=== PATIENT | female | born 1940 | race Hispanic/Latino ===

== ENCOUNTER → 2018-08-23 | Outpatient (CLI) | payer OTHER, MEDICARE ==
[~2018-08-23] MED LIST: HAWT500C PO
[2018-08-23 13:30] LABS: BASOPHILS % (AUTO) 0.8 % (0.0-5.0); EOSINOPHILS % (AUTO) 0.6 % (0.0-8.0); LYMPHOCYTES % (AUTO) 25.7 % (21.0-51.0); MEAN CORPUSCULAR HEMOGLOBIN 30.2 pg (27.0-33.0); MEAN CORPUSCULAR HGB CONC 33.2 g/dL (32.0-36.0); MEAN CORPUSCULAR VOLUME 91.1 fL (79-99); MONOCYTES % (AUTO) 8.8 % (3.0-13.0); NEUTROPHILS % (AUTO) 64.1 % (40.0-77.0); PLATELET COUNT (AUTO) 230 K/uL (130-400); RED BLOOD CELL COUNT(AUTO) 4.61 MIL/uL (4.00-5.50); RED CELL DISTRIBUTION WIDTH 13.4 % (11.0-15.5); WHITE BLOOD COUNT (AUTO) 5.5 K/uL (4.8-10.8)
[2018-08-23 13:40] LABS: INR 0.93 (0.85-1.15); PROTHROMBIN TIME 9.8 SEC (9.6-11.6)
== END | disposition home or self-care (01) ==
LOC: LAB 12:48
PROVIDERS: ATTEND Internal Medicine
DX: Z01.818 Encounter for other preprocedural examination (principal); R00.2 Palpitations; E78.5 Hyperlipidemia, unspecified; E78.00 Pure hypercholesterolemia, unspecified
CPT/HCPCS: 36415; 85025; 85610; 85730

== ENCOUNTER → 2023-06-02 | Outpatient (CLI) | payer OTHER | END | disposition home or self-care (01) | LOC: SHCH 10:49 | PROVIDERS: ATTEND Internal Medicine Cardiovascular Disease | DX: I08.3 Combined rheumatic disorders of mitral, aortic and tricuspid valves (principal); I42.9 Cardiomyopathy, unspecified; I10 Essential (primary) hypertension; E78.5 Hyperlipidemia, unspecified | CPT/HCPCS: 93306 ==

== ENCOUNTER 2024-04-25 21:05 | Observation (INO) | payer OTHER, MEDICAID ==
[~2024-04-25] VITALS: Ht 167.6 cm; Wt 59.4 kg
--- NOTE | 2024-04-25 21:17 | NUR ---
PATIENT TAKEN TO CT AT THIS TIME
--- NOTE | 2024-04-25 21:24 | ERN ---
ED Note History of Present Illness Stated Complaint: HEAD INJURY Chief Complaint: Head, Face, Neck Trauma Time Seen by MD: 21:12 Dictation: This is an 83-year-old female brought by EMS for evaluation of a fall and injury to the head. This happened prior to ER presentation. Apparently she was heading to the bathroom and tripped and fell hit the left side of the head and sustained a an abrasion and a bump Patient denied any loss of consciousness. He is on apixaban. She denied any headache, diplopia or blurred vision, facial droop, weakness of 1 side of the body or seizure activity. Also denied any chest pain palpitations or syncopal episode. Temperature 102.6 pulse 86 respirations 16 blood pressure 126/56 with a pulse oximetry of 95% on room air Trauma alert called- Time of patient arrival-915 ED physician involved and time of arrival and evaluation-916 Tier level- 2 [id number] interventions done. Patient just transported by EMS Primary survey- Airway intact patient on room air with pulse oximetry of 98% Breathing-normal breath sounds coarse rhonchi bilaterally Circulation-skin warm, distal pulses 2+, capillary refill less than 2 seconds globally Disability-only face with lacerations Pupils equal round reacting to light GCS- E-5 V-4 M-6-15 Motor function-moves all extremities Sensory-no deficits Exposure Allergies: Coded Allergies: No Known Allergies (Unverified Allergy, Unknown, 10/19/14) Home Meds Reported Medications [Simethicone Os] No Conflict Check, 40 MG PO Q6HPRN 04/25/24 Pantoprazole Sodium (Protonix) 40 Mg Ectab, 40 MG PO BID, TAB.EC 04/25/24 Ondansetron HCl (Ondansetron HCl) 4 Mg Tablet, 1 TAB PO Q6HPRN PRN for nausea/vomiting, #10 TAB 0 Refills 04/25/24 Nitroglycerin (Nitroglycerin) 0.4 Mg Tab.subl, 1 TAB SL AD for chest pain, #25 TAB 0 Refills 1st sign of attack; may repeat every 5 mins; if pain persists after 3 in 15 min, medical attention is recommended 04/25/24 Metoprolol Tartrate (Metoprolol Tartrate) 50 Mg Tablet, 1 TAB PO BID for 30 Days, #60 TAB 0 Refills 04/25/24 Mag Hydrox/Al Hydrox/Simeth (Maalox/Mylanta Susp) 200 Mg-200 Mg-20 Mg/5 Ml Susp, 30 ML PO Q6HPRN, ML 04/25/24 Hydralazine Hcl (APRESOLINE) 10 Mg Tablet, 10 MG PO Q8H PRN for IF SBP GREATER THAN 140, TAB 04/25/24 Guaifenesin (Guaifenesin) 100 Mg/5 Ml Liq, 10 ML PO Q4HRS PRN for PRN COUGH for 3 Days, #120 ML 0 Refills 04/25/24 Glucagon HCl (Glucagon Emergency Kit) 1 Mg Vial, 1 MG IJ BID PRN for PRN HYPOGLYCEMIA, VIAL 04/25/24 Lactulose (Enulose) 10 Gram/15 Ml Solution, 10 GM PO DAILY for CONSTIPATION, ML 04/25/24 Donepezil HCl (Aricept) 10 Mg Tablet, 1 TAB PO HS for 30 Days, #30 TAB 0 Refills 04/25/24 Amiodarone HCl (Amiodarone HCl) 100 Mg Tablet, 1 TAB PO DAILY for 30 Days, #30 TAB 0 Refills 04/25/24 Alendronate Sodium (Alendronate Sodium) 70 Mg Tablet, 70 MG PO DAILY, TAB 04/25/24 Apixaban (Eliquis) 2.5 Mg Tablet, 2.5 MG PO BID, TAB 04/25/24 Ang[place] (Angola Pierce) 500 Mg Capsule, 500 MG PO BID, CAP 10/19/14 Past Medical History Family History: Negative Social History: Negative History: Not Applicable RN Note Reviewed/Agreed w/PFSH: Yes Review of System Dictation Constitutional: Negative for fever,chills, and weight loss Eyes: Negative for injury, pain,redness, and discharge ENT: Negative for injury,pain or swelling Cardiovascular: Negative for chest pain, palpitations, and edema Respiratory: Negative for shortness of breath, cough, and wheezing, Abdomen/GI: Negative for abdominal pain, nausea, vomiting, diarrhea, and constipation Back: Negative for injury and pain : Negative for injury, bleeding and discharge MS/Extremity: Negative for injury and deformity Skin: Negative for rash, and discoloration Neuro: Negative for headache, weakness, numbness, tingling, and seizure Psych: Negative for suicide ideation, homicidal ideation, and hallucinations Initial Vital Sign VS Vital Signs Date Time Temp Pulse Resp B/P (MAP) Pulse Ox O2 Delivery O2 Flow Rate FiO2 04/25/24 21:10 102.6 86 16 126/56 95 Room Air* 0 21 Physical Exam Dictation Secondary survey Vital signs General well-developed well-nourished Head-normocephalic left facial injuries and lip injuries cleaned with saline Eyes pupils were equal round reactive to light conjunctiva clear extraocular movements intact no raccoon eyes ENT no chandra sign nares patent, oropharynx clear no fluid in the ear canals. Neck no JVD, midline trachea, no cervical spine tenderness, Heart S1-S2 regular no murmurs rubs or gallops Lungs-clear to auscultation bilaterally Chest chest wall nontender no bruising or deformity noted no flail chest Abdomen-no Vanessa Strauss's or Joshua's sign, soft nontender no rebound or guarding--E fast scan negative Pelvis stable to rock Back-no step-offs or deformities T2 L-spine nontender no perineal hematoma no blood at the meatus Extremities 2+ global pulses, moving all extremities well +5 x 5 muscle strength globally Neurological-cranial nerves 2-12 grossly intact no sensory deficits Rectal-good tone no gross blood no high-riding prostate Results (Laboratory/Radiology) Laboratory/Radiology Laboratory Tests Test 04/25/24 21:32 04/25/24 21:33 Influenza Type A Antigen Positive For Type A Influenza Type B Antigen Negative For Type B SARS-CoV-2 Antigen (Rapid) PRESUMPTIVE NEGATIVE White Blood Count 7.7 K/uL (4.8-10.8) Red Blood Count 3.92 MIL/uL (4.00-5.50) L Hemoglobin 11.1 g/dL (12.0-16.0) L Hematocrit 35.2 % (36-48) L Mean Corpuscular Volume 89.8 fL (79-99) Mean Corpuscular Hemoglobin 28.3 pg (27.0-33.0) Mean Corpuscular Hemoglobin Concent 31.5 g/dL (32.0-36.0) L Red Cell Distribution Width 13.5 % (11.0-15.5) Platelet Count 202 K/uL (130-400) Mean Platelet Volume 10.3 fL (7.5-10.5) Immature Granulocyte % (Auto) 0.7 % (0-1) Neutrophils (%) (Auto) 75.9 % (40.0-77.0) Lymphocytes (%) (Auto) 7.8 % (21.0-51.0) L Monocytes (%) (Auto) 15.5 % (3.0-13.0) H Eosinophils (%) (Auto) 0.0 % (0.0-8.0) Basophils (%) (Auto) 0.1 % (0.0-5.0) Neutrophils # (Auto) 5.8 K/uL (1.8-7.7) Lymphocytes # (Auto) 0.6 K/uL (1.0-4.8) L Monocytes # (Auto) 1.2 K/uL (0.1-1.0) H Eosinophils # (Auto) 0.00 K/uL (0.00-0.70) Basophils # (Auto) 0.01 K/uL (0.00-0.20) Absolute Immature Granulocyte (auto 0.05 K/uL (0-1) Nucleated Red Blood Cells 0.0 % (0.0-0.19) White Cell Morphology Comment See comments Sodium Level 132 mmol/L (136-145) L Potassium Level 3.8 mmol/L (3.5-5.1) Chloride Level 96 mmol/L (101-111) L Carbon Dioxide Level 31 mmol/L (21-32) Blood Urea Nitrogen 20 mg/dL (7-18) H Creatinine 0.9 mg/dL (0.5-1.0) Glomerular Filtration Rate Calc 63 mL/min (>90) Random Glucose 98 mg/dL (70-105) Lactic Acid Level 1.3 mmol/L (0.8-2.5) Total Calcium 8.6 mg/dL (8.5-10.1) Total Creatine Kinase 567 U/L (21-232) *H Troponin I High Sensitivity 40.4 ng/L (4-50) B-Type Natriuretic Peptide 277 pg/mL (0-100) H Serum Alcohol < 3 mg/dL (0-10) Labs Reviewed?: Yes EKG Comment: 12 lead EKG done on 04/25/2024 at 9:35 p.m. showed a heart rate of 88, [place] interval 154, QRS 88, QT/QTC 377/441 Impression normal sinus rhythm with PACs left atrial enlargement nonspecific ST- T changes in the septal leads. Interpreted by ER MD Dr. Ying CT Scan Comment: REASON: trauma fall head injury ORDERING PHYSICIAN: FRANTZ YING MD PROCEDURE: C SPIN WO - CT CERVICAL SPINE W/O CONTRAST Exam Type: CT cervical spine without contrast Clinical Information: trauma fall head injury Comparison: None Technique: Spiral axial images were performed from the base of the skull down to the thoracic vertebral bodies. Both sagittal and coronal reconstructions were performed. CT Dose Index (CTDI): 12.85 mGy Dose Length Product (DLP): 282.6 total Findings: There are degenerative changes. Degenerative disc disease is noted at multiple levels. There is reversal of normal cervical lordosis consistent with degeneration and spasm. There are no fractures. There is facet hypertrophy at multiple levels. IMPRESSION: Degenerative changes as noted. No acute pathology. No fractures seen. This study was performed using dose reduction techniques to include automated exposure control and/or adjustment of the mA and/or kV according to patient size. DICTATED BY: KETAN HARRISON MD DATE: 04/25/242133 ELECTRONICALLY SIGNED BY: KETAN HARRISON MD DATE: 04/25/242139 REASON: trauma fall head injury ORDERING PHYSICIAN: FRANTZ YING MD PROCEDURE: HEAD WO - CT HEAD/BRAIN W/O CONTRAST Exam Type: CT HEAD/BRAIN W/O CONTRAST Clinical Information: trauma fall head injury Comparison: None CT Dose Index (CTDI): 57.33 mGy Dose Length Product (DLP): 956.79 total mGy-cm Findings: The examination shows atrophy. There is low attenuation throughout the periventricular white matter locations, consistent with chronic small vessel ischemic changes. No acute intra- or extra-axial fluid collections are seen. There is no evidence of acute or chronic hemorrhage. There is no mass effect or shift of midline structures. There are no areas to suggest acute infarct. The skull windows show no significant abnormalities. IMPRESSION: 1. ATROPHY AND CHRONIC SMALL VESSEL ISCHEMIC CHANGES. This study was performed using dose reduction techniques to include automated exposure control and/or adjustment of the mA and/or kV according to patient size. DICTATED BY: KETAN HARRISON MD DATE: 04/25/242127 ELECTRONICALLY SIGNED BY: KETAN HARRISON MD DATE: 04/25/242139 ED Course ED Course Orders Procedure Category Date Status Time Alcohol, Blood LAB 04/25/24 Complete 21:14 Cardiac Panel LAB 04/25/24 Complete 21:14 Cbc With Differential LAB 04/25/24 Complete 21:14 Basic Metabolic Panel LAB 04/25/24 Complete 21:14 B-Type Natriuretic LAB 04/25/24 Complete Peptide 21:14 Urinalysis Profile LAB 04/25/24 Logged 21:14 Ct Head/Brain W/O CT 04/25/24 Resulted Contrast 21:14 Ct Cervical Spine W/O CT 04/25/24 Resulted Contrast 21:14 12 Lead Ekg Tracing- EKG 04/25/24 Complete Technical 21:14 Chest 1vw RAD 04/25/24 Resulted 21:14 Blood Cult AZAEL 04/25/24 In Process 21:17 Lactic Acid LAB 04/25/24 Complete 21:17 Influenza Type A & B, LAB 04/25/24 Complete Rapid 21:17 Covid19 (Sars Antigen LAB 04/25/24 Complete Rapid) 21:17 0.9%Nacl 1000ml (Ns PHA 04/25/24 Complete 1000ml) 21:30 Acetaminophen 325 Tab PHA 04/25/24 Complete (Tylenol 325mg Tab 22:00 Oseltamivir Phosphate PHA 04/26/24 Complete (Tamiflu) 01:00 Ceftriaxone 1g Vial PHA 04/26/24 Complete (Rocephine 1g Inj) 01:00 Current Medications Medications (Trade) Dose Ordered Sig/Jennie Route PRN Reason Start Time Stop Time Status Last Admin Dose Admin Acetaminophen (TYLenol 325MG TAB) 650 mg ONCE ONCE PO 04/25/24 22:00 04/25/24 22:01 DC 04/25/24 21:44 Ceftriaxone Sodium (ROCEphine 1G INJ) 1 gm ONCE ONCE IVPB 04/26/24 01:00 04/26/24 01:01 DC Oseltamivir Phosphate (Tamiflu) 75 mg ONCE ONCE PO 04/26/24 01:00 04/26/24 01:01 DC Sodium Chloride 1,000 ml @ 0 mls/hr ONCE ONCE IV 04/25/24 21:30 04/25/24 21:31 DC 04/25/24 21:44 Vital Signs Date Time Temp Pulse Resp B/P (MAP) Pulse Ox O2 Delivery O2 Flow Rate FiO2 04/25/24 21:21 102.6 86 16 126/56 95 Room Air 0 04/25/24 21:10 102.6 86 16 126/56 95 Room Air* 0 21 We will perform diagnostic labs, advanced imaging and administer medications according to the patient's complaint. Once the results are available, will review and personally interpreted the labs to rule out any acute life-threatening emergency the trach require immediate intervention and treatment. I will then re-evaluate the patient after treatment and diagnostic exams have return to determine whether the patient requires any further testing, can safely be discharged home or need further admission to hospital for additional treatment and evaluation. 9:45 p.m. Labs reviewed CBC shows a hemoglobin of 11.1 10:09 p.m. lactic acid is 1.3 BNP 7 shows a BUN and creatinine of 20 and 0.9 with a sodium of 132 chloride 96. 10:[address] scan of head negative for any acute intracranial abnormality or hemorrhage no depressed skull fracture. CT cervical spine only showed degenerative disc disease but no evidence of any fractures or dislocations 11:00 p.m. still awaiting urinalysis and viral serology 12:38 a.m. delay in admitting the patient as I was involved in an emergency in the ICU. Influenza a was positive We will admit the patient for sepsis dehydration influenza a likely a UTI it is still penng at this time. 1:07 a.m. patient accepted by , for admission and further management Medical Decision Making MDM MDM: Differential diagnosis: Fall probably from advanced age, dehydration, sepsis, electrolyte abnormalities, intracranial event Rationale: Tests considered and ordered secondary to shared decision making include: labs, ECG and radiology Previous outside records reviewed: Old ER visits. Risk of complication and/or morbidity or mortality of patient management: None Medications-Per medication reconciliation Need for hospitalization: Patient does meet criteria for hospitalization. Need for emergency major/minor surgery: No There are no social concerns with this patient. Prescription drug management Prescriptions will include symptomatic care Patient's prior external medical records from other ER visits were reviewed by me as indicated. Prior testing and results from previous visits were reviewed. Prior tests were taken into account with medical decision making and resource utilization, independent historian/historians were used to obtain complete medical history. I independently interpreted the test that were performed, results were reviewed by me and considered findings on radiology if ordered. Medical management and examination interpretation discussions were had by me with other qualified healthcare professionals as indicated for the patient's care. Problem List Problem List: (1) Fall from standing (2) Closed head injury (3) Left parietal scalp hematoma (4) Sepsis (5) Influenza A DX & DISP Disposition: Inpatient Decision to Admit Time: 21:48 Departure Impression: Primary Impression: Fall from standing Additional Impressions: Closed head injury, Left parietal scalp hematoma, Sepsis, Influenza A Condition: Stable Additional Instructions: Patient was informed of all the diagnostic labs and procedures conducted in the emergency room today and demonstrated understanding of the results. I personally reviewed and interpreted all the diagnostic exams performed in the ER today. The patient will be admitted to the hospital for further treatment and evaluation. Disposition-admit to facility Condition-stable/guarded Course-uncertain at this time Pain status-decreased Assessment-exam unchanged Admission Certification- I certify that the patients status is appropriate and is based on my best clinical judgment and the patient's condition as documented in the medical records Referrals: OLEGARIO RODRIGUEZ MD (PCP) FRANTZ YING MD Apr 25, 2024 21:24
--- NOTE | 2024-04-25 21:32 | NUR ---
PATIENT BACK FROM CT SCAN
--- NOTE | 2024-04-25 21:37 | EKG ---
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
[2024-04-25] MEDS ORDERED: APIX2.5T PO (21:40)
--- NOTE | 2024-04-25 21:40 | HMCIMG ---
Exam Type: CT HEAD/BRAIN W/O CONTRAST Clinical Information: trauma fall head injury Comparison: None CT Dose Index (CTDI): 57.33 mGy Dose Length Product (DLP): 956.79 total mGy-cm Findings: The examination shows atrophy. There is low attenuation throughout the periventricular white matter locations, consistent with chronic small vessel ischemic changes. No acute intra- or extra-axial fluid collections are seen. There is no evidence of acute or chronic hemorrhage. There is no mass effect or shift of midline structures. There are no areas to suggest acute infarct. The skull windows show no significant abnormalities. IMPRESSION: 1. ATROPHY AND CHRONIC SMALL VESSEL ISCHEMIC CHANGES. This study was performed using dose reduction techniques to include automated exposure control and/or adjustment of the mA and/or kV according to patient size.
--- NOTE | 2024-04-25 21:40 | HMCIMG ---
Exam Type: CT cervical spine without contrast Clinical Information: trauma fall head injury Comparison: None Technique: Spiral axial images were performed from the base of the skull down to the thoracic vertebral bodies. Both sagittal and coronal reconstructions were performed. CT Dose Index (CTDI): 12.85 mGy Dose Length Product (DLP): 282.6 total Findings: There are degenerative changes. Degenerative disc disease is noted at multiple levels. There is reversal of normal cervical lordosis consistent with degeneration and spasm. There are no fractures. There is facet hypertrophy at multiple levels. IMPRESSION: Degenerative changes as noted. No acute pathology. No fractures seen. This study was performed using dose reduction techniques to include automated exposure control and/or adjustment of the mA and/or kV according to patient size.
[2024-04-25] MEDS ORDERED: AMIO100T4 PO (21:41)
[2024-04-25] MEDS ORDERED: ALEN70TA80 PO (21:41)
[2024-04-25] MEDS ORDERED: DONE10TA8 PO (21:42)
[2024-04-25 21:43] LABS: BASOPHILS # (AUTO) 0.01 K/uL (0.00-0.20); BASOPHILS % (AUTO) 0.1 % (0.0-5.0); HEMATOCRIT 35.2 % (36-48); IMMATURE GRANULOCYTE ABSOLUTE 0.05 K/uL (0-1); LYMPHOCYTES # (AUTO) 0.6 K/uL (1.0-4.8); LYMPHOCYTES % (AUTO) 7.8 % (21.0-51.0); MEAN CORPUSCULAR HEMOGLOBIN 28.3 pg (27.0-33.0); MEAN CORPUSCULAR HGB CONC 31.5 g/dL (32.0-36.0); MEAN CORPUSCULAR VOLUME 89.8 fL (79-99); MONOCYTES # (AUTO) 1.2 K/uL (0.1-1.0); MONOCYTES % (AUTO) 15.5 % (3.0-13.0); NEUTROPHILS # (AUTO) 5.8 K/uL (1.8-7.7); NEUTROPHILS % (AUTO) 75.9 % (40.0-77.0); PLATELET COUNT (AUTO) 202 K/uL (130-400); RED BLOOD CELL COUNT(AUTO) 3.92 MIL/uL (4.00-5.50); RED CELL DISTRIBUTION WIDTH 13.5 % (11.0-15.5); WHITE BLOOD COUNT (AUTO) 7.7 K/uL (4.8-10.8)
[2024-04-25] MEDS ORDERED: LACT10SO75 PO (21:43)
[2024-04-25] MEDS: acetaMINOPHEN 325 MG TAB PO ONE (21:44)
[2024-04-25] MEDS ORDERED: GLUC1VIA14 IJ (21:44)
[2024-04-25] MEDS: 0.9%NACL 1000ML 1,000 ML IV ONE (21:44)
[2024-04-25] MEDS ORDERED: GUAI100S13 PO (21:46)
[2024-04-25] MEDS ORDERED: HYDR-3420 PO (21:47)
[2024-04-25] MEDS ORDERED: MAAL30 PO (21:48)
[2024-04-25] MEDS ORDERED: METO50TA18 PO (21:48)
[2024-04-25] MEDS ORDERED: NITR0.4T50 SL (21:49)
[2024-04-25] MEDS ORDERED: PANT40TA55 PO (21:50)
[2024-04-25] MEDS ORDERED: ONDA-104 PO (21:50)
[2024-04-25 21:54] LABS: CARBON DIOXIDE 31 mmol/L (21-32); CHLORIDE 96 mmol/L (101-111); CREATININE 0.9 mg/dL (0.5-1.0); GLOMERULAR FILTR. RATE CALC 63 mL/min (>90); GLUCOSE,RANDOM 98 mg/dL (70-105); POTASSIUM 3.8 mmol/L (3.5-5.1); SODIUM SERUM 132 mmol/L (136-145); UREA NITROGEN, BLOOD 20 mg/dL (7-18)
[2024-04-25] MEDS ORDERED: [UNRECOGNIZED DRUG - OTHER] PO (21:55)
--- NOTE | 2024-04-25 22:00 | HMCIMG ---
Exam Type: CHEST 1VW Clinical Information: fall Comparison: None Findings: The lungs are clear of infiltrates. The heart is enlarged. Bony and soft tissue structures of the chest wall are unremarkable. IMPRESSION: Cardiomegaly. Clear lungs.
[2024-04-25 22:05] LABS: B-TYPE NATRIURETIC PEPTIDE 277 pg/mL (0-100)
[2024-04-25 22:08] LABS: ALCOHOL, BLOOD < 3 mg/dL (0-10)
[2024-04-25 22:12] LABS: CREATINE KINASE, TOTAL 567 U/L (21-232)
[2024-04-25 22:30] LABS: COVID19 (SARS ANTIGEN RAPID) PRESUMPTIVE NEGATIVE (NEGATIVE)
[2024-04-25 22:32] LABS: INFLUENZA TYPE B Negative For Type B (NEGATIVE)
[2024-04-25 22:43] LABS: INFLUENZA TYPE A Positive For Type A (NEGATIVE)
[2024-04-25 22:55] VITALS: TEMP 101
[2024-04-26] MEDS: OSELTAMIVIR PHOSPHATE 75 MG CAP PO ONE (01:06)
[2024-04-26] MEDS: cefTRIAXone 1G VIAL IVPB ONE (01:06)
[2024-04-26] MEDS ORDERED: acetaMINOPHEN 325 MG TAB PO PRN (01:30)
[2024-04-26] MEDS: 1/2 NS 1000ML 1,000 ML IV SCH (01:38)
[2024-04-26 02:25] VITALS: BP 109/59; PULSE 77; RESP 18; TEMP 97.8
[2024-04-26 04:49] VITALS: BP 131/76; PULSE 79; RESP 18; TEMP 98.1
[2024-04-26 05:07] LABS: BASOPHILS # (AUTO) 0.03 K/uL (0.00-0.20); BASOPHILS % (AUTO) 0.5 % (0.0-5.0); HEMATOCRIT 39.1 % (36-48); IMMATURE GRANULOCYTE ABSOLUTE 0.03 K/uL (0-1); LYMPHOCYTES # (AUTO) 1.7 K/uL (1.0-4.8); LYMPHOCYTES % (AUTO) 25.1 % (21.0-51.0); MEAN CORPUSCULAR HEMOGLOBIN 28.7 pg (27.0-33.0); MEAN CORPUSCULAR HGB CONC 30.9 g/dL (32.0-36.0); MEAN CORPUSCULAR VOLUME 92.9 fL (79-99); MONOCYTES # (AUTO) 0.7 K/uL (0.1-1.0); MONOCYTES % (AUTO) 10.3 % (3.0-13.0); NEUTROPHILS # (AUTO) 4.2 K/uL (1.8-7.7); NEUTROPHILS % (AUTO) 63.6 % (40.0-77.0); PLATELET COUNT (AUTO) 195 K/uL (130-400); RED BLOOD CELL COUNT(AUTO) 4.21 MIL/uL (4.00-5.50); RED CELL DISTRIBUTION WIDTH 13.5 % (11.0-15.5); WHITE BLOOD COUNT (AUTO) 6.6 K/uL (4.8-10.8)
[2024-04-26 05:19] LABS: ALBUMIN 3.4 g/dL (3.5-5.0); BILIRUBIN,TOTAL 0.3 mg/dL (0.2-1.0); POTASSIUM 3.5 mmol/L (3.5-5.1); TOTAL PROTEIN, SERUM 7.6 g/dL (6.0-8.3)
[2024-04-26 08:00] VITALS: BP 107/59; PULSE 102; RESP 18; TEMP 98.3; O2SAT 99
--- NOTE | 2024-04-26 13:17 | NUR ---
DCP -- [facility] Droplet Precautions Via telephone interview, Sergio Solis [phone] states patient has Alzheimer's and has been living at [facility] since end February 2023. [facility] patient is full assist ADL's. [facility] patient has a wheelchair and [facility] provides medical devices for use. PCP - Berto Kwan MD Pharmacy - [facility]. Transportation will be [facility]. Elsi BrandonSergio salmon [phone]/Sergio Egan [phone] are the emergency contacts. Addendum: 04/26/24 at 1322 by SANDRA PEPPER RN CM Amended: Links added.
--- NOTE | 2024-04-26 22:23 | HP ---
HISTORY AND PHYSICAL NOTE DATE OF CONSULTATION: 04/26/24 REASON FOR CONSULTATION: Fall HISTORY OF PRESENT ILLNESS: This is an 83-year-old female brought by EMS for evaluation of a fall and injury to the head. This happened prior to ER presentation. Apparently she was heading to the bathroom and tripped and fell hit the left side of the head and sustained a an abrasion and a bump Patient denied any loss of consciousness. He is on apixaban. She denied any headache, diplopia or blurred vision, facial droop, weakness of 1 side of the body or seizure activity. Also denied any chest pain palpitations or syncopal episode. Temperature 102.6 pulse 86 respirations 16 blood pressure 126/56 with a pulse oximetry of 95% on room air Trauma alert called- Time of patient arrival-[id number] ED physician involved and time of arrival and evaluation-[id number] Tier level- 2 [id number] interventions done. Patient just transported by EMS Primary survey- Airway intact patient on room air with pulse oximetry of 98% Breathing-normal breath sounds coarse rhonchi bilaterally Circulation-skin warm, distal pulses 2+, capillary refill less than 2 seconds globally Disability-only face with lacerations Pupils equal round reacting to light GCS- E-5 V-4 M-6-15 Motor function-moves all extremities Sensory-no deficits Exposure Allergies: Coded Allergies: No Known Allergies (Unverified Allergy, Unknown, 10/19/14) Home Meds Reported Medications [Simethicone Os] No Conflict Check, 40 MG PO Q6HPRN 04/25/24 Pantoprazole Sodium (Protonix) 40 Mg Ectab, 40 MG PO BID, TAB.EC 04/25/24 Ondansetron HCl (Ondansetron HCl) 4 Mg Tablet, 1 TAB PO Q6HPRN PRN for nausea/vomiting, #10 TAB 0 Refills 04/25/24 Nitroglycerin (Nitroglycerin) 0.4 Mg Tab.subl, 1 TAB SL AD for chest pain, #25 TAB 0 Refills 1st sign of attack; may repeat every 5 mins; if pain persists after 3 in 15 min, medical attention is recommended 04/25/24 Metoprolol Tartrate (Metoprolol Tartrate) 50 Mg Tablet, 1 TAB PO BID for 30 Days, #60 TAB 0 Refills 04/25/24 Mag Hydrox/Al Hydrox/Simeth (Maalox/Mylanta Susp) 200 Mg-200 Mg-20 Mg/5 Ml Susp, 30 ML PO Q6HPRN, ML 04/25/24 Hydralazine Hcl (APRESOLINE) 10 Mg Tablet, 10 MG PO Q8H PRN for IF SBP GREATER THAN 140, TAB 04/25/24 Guaifenesin (Guaifenesin) 100 Mg/5 Ml Liq, 10 ML PO Q4HRS PRN for PRN COUGH for 3 Days, #120 ML 0 Refills 04/25/24 Glucagon HCl (Glucagon Emergency Kit) 1 Mg Vial, 1 MG IJ BID PRN for PRN HYPOGLYCEMIA, VIAL 04/25/24 Lactulose (Enulose) 10 Gram/15 Ml Solution, 10 GM PO DAILY for CONSTIPATION, ML 04/25/24 Donepezil HCl (Aricept) 10 Mg Tablet, 1 TAB PO HS for 30 Days, #30 TAB 0 Refills 04/25/24 Amiodarone HCl (Amiodarone HCl) 100 Mg Tablet, 1 TAB PO DAILY for 30 Days, #30 TAB 0 Refills 04/25/24 Alendronate Sodium (Alendronate Sodium) 70 Mg Tablet, 70 MG PO DAILY, TAB 04/25/24 Apixaban (Eliquis) 2.5 Mg Tablet, 2.5 MG PO BID, TAB 04/25/24 [place] ([place]) 500 Mg Capsule, 500 MG PO BID, CAP 10/19/14 Past Medical History Family History: Negative Social History: Negative History: Not Applicable RN Note Reviewed/Agreed w/PFSH: Yes Review of System Dictation Constitutional: Negative for fever,chills, and weight loss Eyes: Negative for injury, pain,redness, and discharge ENT: Negative for injury,pain or swelling Cardiovascular: Negative for chest pain, palpitations, and edema Respiratory: Negative for shortness of breath, cough, and wheezing, Abdomen/GI: Negative for abdominal pain, nausea, vomiting, diarrhea, and constipation Back: Negative for injury and pain : Negative for injury, bleeding and discharge MS/Extremity: Negative for injury and deformity Skin: Negative for rash, and discoloration Neuro: Negative for headache, weakness, numbness, tingling, and seizure Psych: Negative for suicide ideation, homicidal ideation, and hallucinations ALLERGIES: Coded Allergies: No Known Allergies (Unverified Allergy, Unknown, 10/19/14) HOME MEDS: Reported Medications [Simethicone Os] No Conflict Check, 40 MG PO Q6HPRN 04/25/24 Pantoprazole Sodium (Protonix) 40 Mg Ectab, 40 MG PO BID, TAB.EC 04/25/24 Ondansetron HCl (Ondansetron HCl) 4 Mg Tablet, 1 TAB PO Q6HPRN PRN for nausea/vomiting, #10 TAB 0 Refills 04/25/24 Nitroglycerin (Nitroglycerin) 0.4 Mg Tab.subl, 1 TAB SL AD for chest pain, #25 TAB 0 Refills 1st sign of attack; may repeat every 5 mins; if pain persists after 3 in 15 min, medical attention is recommended 04/25/24 Metoprolol Tartrate (Metoprolol Tartrate) 50 Mg Tablet, 1 TAB PO BID for 30 Days, #60 TAB 0 Refills 04/25/24 Mag Hydrox/Al Hydrox/Simeth (Maalox/Mylanta Susp) 200 Mg-200 Mg-20 Mg/5 Ml Susp, 30 ML PO Q6HPRN, ML 04/25/24 Hydralazine Hcl (APRESOLINE) 10 Mg Tablet, 10 MG PO Q8H PRN for IF SBP GREATER THAN 140, TAB 04/25/24 Guaifenesin (Guaifenesin) 100 Mg/5 Ml Liq, 10 ML PO Q4HRS PRN for PRN COUGH for 3 Days, #120 ML 0 Refills 04/25/24 Glucagon HCl (Glucagon Emergency Kit) 1 Mg Vial, 1 MG IJ BID PRN for PRN HYPOGLYCEMIA, VIAL 04/25/24 Lactulose (Enulose) 10 Gram/15 Ml Solution, 10 GM PO DAILY for CONSTIPATION, ML 04/25/24 Donepezil HCl (Aricept) 10 Mg Tablet, 1 TAB PO HS for 30 Days, #30 TAB 0 Refills 04/25/24 Amiodarone HCl (Amiodarone HCl) 100 Mg Tablet, 1 TAB PO DAILY for 30 Days, #30 TAB 0 Refills 04/25/24 Alendronate Sodium (Alendronate Sodium) 70 Mg Tablet, 70 MG PO DAILY, TAB 04/25/24 Apixaban (Eliquis) 2.5 Mg Tablet, 2.5 MG PO BID, TAB 04/25/24 [place] ([place]) 500 Mg Capsule, 500 MG PO BID, CAP 10/19/14 VITAL SIGNS Vital Signs Date Time Temp Pulse Resp B/P (MAP) Pulse Ox O2 Delivery O2 Flow Rate FiO2 04/26/24 08:00 98.2 102 18 107/59 99 Room Air 04/26/24 08:00 99 Room Air* 0 21 04/26/24 04:49 98.1 79 18 131/76 99 Room Air 21 04/26/24 02:45 Room Air* 0 21 04/26/24 02:25 97.9 77 18 109/59 98 Room Air 21 PHYSICAL EXAM General well-developed well-nourished Head-normocephalic left facial injuries and lip injuries cleaned with saline Eyes pupils were equal round reactive to light conjunctiva clear extraocular movements intact no raccoon eyes ENT no chandra sign nares patent, oropharynx clear no fluid in the ear canals. Neck no JVD, midline trachea, no cervical spine tenderness, Heart S1-S2 regular no murmurs rubs or gallops Lungs-clear to auscultation bilaterally Chest chest wall nontender no bruising or deformity noted no flail chest Abdomen-no Vanessa Strauss's or Joshua's sign, soft nontender no rebound or guarding--E fast scan negative Pelvis stable to rock Back-no step-offs or deformities T2 L-spine nontender no perineal hematoma no blood at the meatus Extremities 2+ global pulses, moving all extremities well +5 x 5 muscle strength globally Neurological-cranial nerves 2-12 grossly intact no sensory deficits LABORATORY RESULTS Laboratory Tests 04/25/24 21:32: Influenza Type A Antigen Positive For Type A, Influenza Type B Antigen Negative For Type B, SARS-CoV-2 Antigen (Rapid) PRESUMPTIVE NEGATIVE 04/25/24 21:33: White Blood Count 7.7, Red Blood Count 3.92, Hemoglobin 11.1, Hematocrit 35.2, Mean Corpuscular Volume 89.8, Mean Corpuscular Hemoglobin 28.3, Mean Corpuscular Hemoglobin Concent 31.5, Red Cell Distribution Width 13.5, Platelet Count 202, Mean Platelet Volume 10.3, Immature Granulocyte % (Auto) 0.7, Neutrophils (%) (Auto) 75.9, Lymphocytes (%) (Auto) 7.8, Monocytes (%) (Auto) 15.5, Eosinophils (%) (Auto) 0.0, Basophils (%) (Auto) 0.1, Neutrophils # (Auto) 5.8, Lymphocytes # (Auto) 0.6, Monocytes # (Auto) 1.2, Eosinophils # (Auto) 0.00, Basophils # (Auto) 0.01, Absolute Immature Granulocyte (auto 0.05, Nucleated Red Blood Cells 0.0, White Cell Morphology Comment See comments, Sodium Level 132, Potassium Level 3.8, Chloride Level 96, Carbon Dioxide Level 31, Blood Urea Nitrogen 20, Creatinine 0.9, Glomerular Filtration Rate Calc 63, Random Glucose 98, Lactic Acid Level 1.3, Total Calcium 8.6, Total Creatine Kinase 567, Troponin I High Sensitivity 40.4, B-Type Natriuretic Peptide 277, Serum Alcohol < 3 04/26/24 04:34: White Blood Count 6.6, Red Blood Count 4.21, Hemoglobin 12.1, Hematocrit 39.1, Mean Corpuscular Volume 92.9, Mean Corpuscular Hemoglobin 28.7, Mean Corpuscular Hemoglobin Concent 30.9, Red Cell Distribution Width 13.5, Platelet Count 195, Mean Platelet Volume 10.4, Immature Granulocyte % (Auto) 0.5, Neutrophils (%) (Auto) 63.6, Lymphocytes (%) (Auto) 25.1, Monocytes (%) (Auto) 10.3, Eosinophils (%) (Auto) 0.0, Basophils (%) (Auto) 0.5, Neutrophils # (Auto) 4.2, Lymphocytes # (Auto) 1.7, Monocytes # (Auto) 0.7, Eosinophils # (Auto) 0.00, Basophils # (Auto) 0.03, Absolute Immature Granulocyte (auto 0.03, Nucleated Red Blood Cells 0.0, Sodium Level 134, Potassium Level 3.5, Chloride Level 97, Carbon Dioxide Level 30, Blood Urea Nitrogen 21, Creatinine 1.0, Glomerular Filtration Rate Calc 56, Random Glucose 80, Total Calcium 8.8, Red Blood Cell Morphology See com ments, Total Bilirubin 0.3, Aspartate Amino Transf (AST/SGOT) 57, Alanine Aminotransferase (ALT/SGPT) 24, Alkaline Phosphatase 59, Total Protein 7.6, Albumin 3.4 Microbiology Date/Time Source Procedure Growth Status 04/25/24 22:05 Blood Blood Culture - Preliminary NO GROWTH AFTER 24 HOURS Resulted 04/25/24 21:33 Blood Blood Culture - Preliminary NO GROWTH AFTER 24 HOURS Resulted PROBLEM LIST: (1) Influenza ICD Codes: J11.1 - Influenza due to unidentified influenza virus with other respiratory manifestations (2) Influenza A ICD Codes: J10.1 - Influenza due to other identified influenza virus with other respiratory manifestations (3) Closed head injury ICD Codes: S09.90XA - Unspecified injury of head, initial encounter (4) Fall from standing ICD Codes: W19.XXXA - Unspecified fall, initial encounter (5) Left parietal scalp hematoma ICD Codes: S00.03XA - Contusion of scalp, initial encounter PLAN Observe and monitor OLEGARIO RODRIGUEZ MD Apr 26, 2024 22:23
--- NOTE | 2024-04-26 22:24 | DS ---
Discharge Summary DIAGNOSE(S): [Fall Influenza] HOSPITAL COURSE SUMMARY: [Patient likely fell from weakness from influenza hydrated did well close to her baseline given her advanced dementia discharged back [facility]] MICA LAYER(S): [] PROCEDURE(S)/TREATMENT(S): [] PROBLEM(S): [] FOLLOW-UP TEST(S): [None] DISCHARGE INSTRUCTIONS: [Complete the course of Tamiflu as an outpatient] Home Meds Reported Medications [Simethicone Os] No Conflict Check, 40 MG PO Q6HPRN 04/25/24 Pantoprazole Sodium (Protonix) 40 Mg Ectab, 40 MG PO BID, TAB.EC 04/25/24 Ondansetron HCl (Ondansetron HCl) 4 Mg Tablet, 1 TAB PO Q6HPRN PRN for nausea/vomiting, #10 TAB 0 Refills 04/25/24 Nitroglycerin (Nitroglycerin) 0.4 Mg Tab.subl, 1 TAB SL AD for chest pain, #25 TAB 0 Refills 1st sign of attack; may repeat every 5 mins; if pain persists after 3 in 15 min, medical attention is recommended 04/25/24 Metoprolol Tartrate (Metoprolol Tartrate) 50 Mg Tablet, 1 TAB PO BID for 30 Da ys, #60 TAB 0 Refills 04/25/24 Mag Hydrox/Al Hydrox/Simeth (Maalox/Mylanta Susp) 200 Mg-200 Mg-20 Mg/5 Ml Susp, 30 ML PO Q6HPRN, ML 04/25/24 Hydralazine Hcl (APRESOLINE) 10 Mg Tablet, 10 MG PO Q8H PRN for IF SBP GREATER THAN 140, TAB 04/25/24 Guaifenesin (Guaifenesin) 100 Mg/5 Ml Liq, 10 ML PO Q4HRS PRN for PRN COUGH for 3 Days, #120 ML 0 Refills 04/25/24 Glucagon HCl (Glucagon Emergency Kit) 1 Mg Vial, 1 MG IJ BID PRN for PRN HYPOGLYCEMIA, VIAL 04/25/24 Lactulose (Enulose) 10 Gram/15 Ml Solution, 10 GM PO DAILY for CONSTIPATION, ML 04/25/24 Donepezil HCl (Aricept) 10 Mg Tablet, 1 TAB PO HS for 30 Days, #30 TAB 0 Refills 04/25/24 Amiodarone HCl (Amiodarone HCl) 100 Mg Tablet, 1 TAB PO DAILY for 30 Days, #30 TAB 0 Refills 04/25/24 Alendronate Sodium (Alendronate Sodium) 70 Mg Tablet, 70 MG PO DAILY, TAB 04/25/24 Apixaban (Eliquis) 2.5 Mg Tablet, 2.5 MG PO BID, TAB 04/25/24 [place] ([place]) 500 Mg Capsule, 500 MG PO BID, CAP 10/19/14 OLEGARIO RODRIGUEZ MD Apr 26, 2024 22:24
[2024-04-27] MEDS ORDERED: cefTRIAXone 1G VIAL IVPB SCH (01:30)
[2024-04-27] MEDS ORDERED: OSELTAMIVIR PHOSPHATE 75 MG CAP PO SCH (09:00)
== END 2024-04-26 13:00 ==
LOC: EDH 21:05 → EDHIP 21:06 → 3BH 04-26 01:35
PROVIDERS: ADMIT Internal Medicine; ATTEND Internal Medicine
DX: J10.1 Influenza due to other identified influenza virus with other respiratory manifestations (principal); S00.03XA Contusion of scalp, initial encounter; A41.9 Sepsis, unspecified organism; F03.90 Unspecified dementia, unspecified severity, without behavioral disturbance, psychotic disturbance, mood disturbance, and anxiety; Z20.822 Contact with and (suspected) exposure to COVID-19; Z98.890 Other specified postprocedural states; Z79.899 Other long term (current) drug therapy; W01.0XXA Fall on same level from slipping, tripping and stumbling without subsequent striking against object, initial encounter; Y93.89 Activity, other specified; Y92.89 Other specified places as the place of occurrence of the external cause; Y99.8 Other external cause status
CPT/HCPCS: 96361; 99285; 82550; 84484; 80048; 83880; 85025 ×2; 87040 ×2; 87804 ×2; 83605; 87426; 36415 ×2; 71045; 70450; 72125; 93005; 96365; 80053; G0378 ×12; J0696